=== PATIENT | female | born 1945 | race Caucasian/White ===

== ENCOUNTER 2023-10-23 13:46 | Observation (INO) ==
[2023-10-23 14:17] VITALS: BMI 25.4
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
[2023-10-23 14:51] LABS: BILIRUBIN,URINE NEGATIVE (NEGATIVE); BLOOD/HEMOGLOBIN,URINE 1+ (NEGATIVE); GLUCOSE, URINE NEGATIVE (NEGATIVE); KETONES,URINE NEGATIVE (NEGATIVE); LEUKOCYTE ESTERASE ,URINE NEGATIVE (NEGATIVE); NITRITES,URINE NEGATIVE (NEGATIVE); PROTEIN,URINE NEGATIVE (NEGATIVE); UROBILINOGEN,URINE NORMAL (NORMAL)
[2023-10-23] MEDS ORDERED: NS 500 ML IV 500 ML IV ONE ×2 (14:54→14:57)
[2023-10-23 15:04] LABS: APPEARANCE,URINE CLEAR (CLEAR); COLOR,URINE PALE YELLOW (YELLOW)
[2023-10-23 15:05] LABS: BACTERIA,URINE NEGATIVE /HPF (NEGATIVE); SQUAMOUS EPITHELIAL CELL,UR FEW /HPF (NEGATIVE)
[2023-10-23 15:37] LABS: BASOPHILS # (AUTO) 0.2 X10^3/uL (0.0-0.1); BASOPHILS % (AUTO) 1.6 % (0.2-1.0); EOSINOPHILS # (AUTO) 0.1 x10^3/uL (0.0-0.2); EOSINOPHILS % (AUTO) 1.1 % (0.9-2.9); HEMATOCRIT 41.9 % (36.0-47.0); HEMOGLOBIN 13.6 g/dL (12.0-16.0); LYMPHOCYTES # (AUTO) 3.4 X10^3/uL (1.3-2.9); LYMPHOCYTES % (AUTO) 35.4 % (21.0-51.0); MEAN CORPUSCULAR HEMOGLOBIN 26.6 pg (27.0-34.0); MEAN CORPUSCULAR HGB CONC 32.4 g/dL (33.0-35.0); MEAN CORPUSCULAR VOLUME 82.3 fL (80.0-100.0); MEAN PLATELET VOLUME 9.2 fL (7.4-11.0); MONOCYTES # (AUTO) 0.8 x10^3/uL (0.3-0.8); MONOCYTES % (AUTO) 7.9 % (0.0-13.0); NEUTROPHILS # (AUTO) 5.2 x10^3/uL (2.2-4.8); PLATELET COUNT 274 X10^3/uL (150.0-450.0); RED BLOOD COUNT 5.09 X10^6/uL (3.5-5.4); WHITE BLOOD COUNT 9.6 X10^3/uL (3.6-10.0)
[2023-10-23 15:50] LABS: ALANINE AMINOTRANSFERASE 15 Units/L (12-78); ALBUMIN 3.4 g/dL (3.4-5.0); ALKALINE PHOSPHATASE 90 Units/L (46-116); ASPARTATE AMINO TRANSFERASE 19 Units/L (15-37); BLOOD UREA NITROGEN 5 mg/dL (7-18); CARBON DIOXIDE 31.1 mmol/L (21-32); CHLORIDE 99 mmol/L (98-107); CREATININE 0.87 mg/dL (0.55-1.02); GLUCOSE 98 mg/dL (65-99); LIPASE 39 Units/L (16-77); SODIUM 137 mmol/L (136-145); eGFR NON BLACK RACES > 60 (>60)
[2023-10-23] MEDS ORDERED: K-RIDER 10 MEQ/NS 100 ML 10 MEQ/100 ML BAG IV ONE ×2 (15:53→15:56)
[2023-10-23] MEDS ORDERED: D5 NS 1,000 ML IV 1,000 ML IV ONE (15:55)
[2023-10-23 15:56] LABS: POTASSIUM 2.5 mmol/L (3.5-5.1)
[2023-10-23] MEDS ORDERED: D5 NS 1,000 ML IV 1,000 ML IV SCH (16:00)
[2023-10-23] MEDS ORDERED: ZOFRAN ODT PO PRN (18:46)
[2023-10-23] MEDS ORDERED: K-RIDER 10 MEQ/NS 100 ML 10 MEQ/100 ML BAG IV SCH ×2 (18:46→23:00)
[2023-10-23] MEDS ORDERED: PATIENT'S HOME MEDICATION (Alprazolam 1 mg tablet) PO PRN (18:46)
[2023-10-23] MEDS ORDERED: CONSULT PHARMACY - POTASSIUM & MAGNESIUM XX SCH (18:46)
[2023-10-23] MEDS ORDERED: XOPENEX 1.25 MG/3 ML NEBULE NEB ONE (19:34)
[2023-10-23] MEDS ORDERED: PULMICORT NEB TX 0.5 MG NEB ONE (19:37)
[2023-10-23] MEDS ORDERED: PROVENTIL NEB TX 0.083% 2.5MG/ 3ML ONE (19:45)
[2023-10-23] MEDS: D5 1/2 NS 1,000 ML 1,000 ML IV SCH (20:29)
[2023-10-23] MEDS: MAGNESIUM SULFATE 1 GRAM/100 mL PREMIX 1 G/100 ML BAG IV SCH ×2 (20:29→21:20)
[2023-10-23] MEDS: XOPENEX 1.25 MG/3 ML NEBULE NEB SCH (20:52)
[2023-10-23] MEDS: PULMICORT NEB TX 0.5 MG NEB SCH (20:52)
[2023-10-23] MEDS ORDERED: XOPENEX 1.25 MG/3 ML NEBULE NEB SCH (21:00)
[2023-10-23] MEDS ORDERED: [UNRECOGNIZED DRUG - OTHER] IN SCH (21:00)
[2023-10-23] MEDS ORDERED: FLUTICASONE PROPIONATE IN SCH (21:00)
[2023-10-24] MEDS ORDERED: NS + KCL 40 MEQ/L 1,000 ML IV SCH
[2023-10-24] MEDS: XOPENEX 1.25 MG/3 ML NEBULE NEB SCH ×3 (06:05→20:59)
[2023-10-24 06:26] LABS: BASOPHILS # (AUTO) 0.1 X10^3/uL (0.0-0.1); BASOPHILS % (AUTO) 1.3 % (0.2-1.0); EOSINOPHILS # (AUTO) 0.3 x10^3/uL (0.0-0.2); EOSINOPHILS % (AUTO) 3.8 % (0.9-2.9); HEMATOCRIT 38.5 % (36.0-47.0); HEMOGLOBIN 12.4 g/dL (12.0-16.0); LYMPHOCYTES # (AUTO) 3.3 X10^3/uL (1.3-2.9); LYMPHOCYTES % (AUTO) 46.1 % (21.0-51.0); MEAN CORPUSCULAR HEMOGLOBIN 26.8 pg (27.0-34.0); MEAN CORPUSCULAR HGB CONC 32.3 g/dL (33.0-35.0); MEAN PLATELET VOLUME 9.6 fL (7.4-11.0); MONOCYTES # (AUTO) 0.6 x10^3/uL (0.3-0.8); MONOCYTES % (AUTO) 8.1 % (0.0-13.0); NEUTROPHILS # (AUTO) 2.9 x10^3/uL (2.2-4.8); NEUTROPHILS % (AUTO) 40.7 % (42.0-75.0); PLATELET COUNT 216 X10^3/uL (150.0-450.0); RED BLOOD COUNT 4.64 X10^6/uL (3.5-5.4); RED CELL DISTRIBUTION WIDTH 16.5 % (11.6-16.5); WHITE BLOOD COUNT 7.2 X10^3/uL (3.6-10.0)
[2023-10-24 06:56] LABS: ALANINE AMINOTRANSFERASE 12 Units/L (12-78); ALBUMIN 2.6 g/dL (3.4-5.0); ALKALINE PHOSPHATASE 78 Units/L (46-116); ASPARTATE AMINO TRANSFERASE 18 Units/L (15-37); BLOOD UREA NITROGEN 5 mg/dL (7-18); CALCIUM 8.1 mg/dL (8.5-10.1); CARBON DIOXIDE 28.2 mmol/L (21-32); CHLORIDE 105 mmol/L (98-107); COR CA(FOR HYPOALB) 9.2 mg/dL (8.5-10.1); GLUCOSE 96 mg/dL (65-99); MAGNESIUM 2.3 mg/dL (2.0-2.9); POTASSIUM 3.1 mmol/L (3.5-5.1); SODIUM 140 mmol/L (136-145); TOTAL PROTEIN 5.6 g/dL (6.4-8.2); eGFR NON BLACK RACES > 60 (>60)
[2023-10-24] MEDS: D5 1/2 NS 1,000 ML 1,000 ML IV SCH (07:06)
[2023-10-24] MEDS ORDERED: ZOFRAN TAB 4 MG PO PRN (07:27)
[2023-10-24] MEDS: D5 1/2 NS + KCL 20 MEQ/L 1,000 ML IV SCH ×2 (09:00→22:21)
[2023-10-24] MEDS ORDERED: CONSULT PHARMACY - POTASSIUM & MAGNESIUM XX SCH (09:00)
[2023-10-24] MEDS: PULMICORT NEB TX 0.5 MG NEB SCH ×2 (09:13→20:59)
[2023-10-24] MEDS: PROTONIX TAB 40 MG PO SCH (10:36)
[2023-10-24] MEDS: ZETIA TAB 10 MG PO SCH (10:36)
[2023-10-24] MEDS: LIPITOR TAB 40 MG PO SCH (10:37)
[2023-10-24] MEDS: GOLYTELY or GAVILYTE or Equivalent PO SCH (10:37)
--- NOTE | 2023-10-24 12:42 | DR.H&P ---
H&P History & Physical for Day of: H&P Date: 10/24/23 Chief Complaint Chief Complaint: Rectal bleeding Allergies Allergies Allergy/AdvReac Type Severity Reaction Status Date / Time amoxicillin Allergy Verified 10/23/23 14:18 Iodinated Contrast Media Allergy Verified 10/23/23 14:18 [IVP DYE] meperidine [From Demerol] Allergy Verified 10/23/23 14:18 shrimp Allergy Verified 10/23/23 14:18 adhesive tape AdvReac Verified 10/23/23 14:18 [tape (adhesive)] History of Present Illness History of Present Illness: Patient is a 78-year-old female presenting with bright red blood per rectum for the past 3 days. She reports having multiple episodes of blood in stool. Has history of diverticulitis and diverticulosis in the past as well as hemorrhoids. She has had a colonoscopy 1 year ago. She is currently not on any blood thinners. Denies fevers, chills. She reports feeling weak, lightheaded. She did go to her primary care doctor and was told that she was dehydrated and needed to go to the ER for further evaluation. Labs: WBC 7.2, hemoglobin 12.4, platelets 216, sodium 140, potassium 2.5>3.1, creatinine 0.70, glucose 96. General surgery-Dr Tyson was consulted, plan for colonoscopy tomorrow. Patient will be on clear liquid diet with n.p.o. after midnight. Replete potassium per protocol. Restart home medications. Continue IV fluids D5 half-normal saline at 80 mL/h. Continue to closely monitor and follow-up labs. 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 Family History Family Medical History: Cancer, [place] and Hypertension Social History Does patient currently use any type of tobacco product: Yes Have you used tobacco products in the last 12 months: Yes Type of Tobacco Use: Cigarettes Does any household member use tobacco: No Alcohol Use: None Drug Use: None Medications Home Medications: Home Medications Medication Instructions Recorded Confirmed Type alprazolam 1 mg tablet 1 mg PO TID PRN 10/23/23 10/23/23 History amoxicillin 875 mg-potassium 1 tab PO BID 10/23/23 10/23/23 History clavulanate 125 mg tablet atorvastatin 40 mg tablet 40 mg PO QDAY 10/23/23 10/23/23 History cyclobenzaprine 10 mg tablet 10 mg PO TID PRN 10/23/23 10/23/23 History ezetimibe 10 mg tablet 10 mg PO QDAY 10/23/23 10/23/23 History fluticasone propionate 110 2 puff inhalation BID 10/23/23 10/23/23 History mcg/actuation HFA aerosol inhaler (Flovent HFA) hydrocodone 10 mg-acetaminophen 1 tab PO QID PRN 10/23/23 10/23/23 History 325 mg tablet lisinopril 20 mg tablet 20 mg PO BID 10/23/23 10/23/23 History ondansetron 4 mg disintegrating 4 mg PO Q6H PRN 10/23/23 10/23/23 History tablet pantoprazole 40 mg tablet,delayed 40 mg PO QDAY 10/23/23 10/23/23 History release Labs 10/24/23 05:32 10/24/23 05:32 Labs: Laboratory WBC 7.2 X10^3/uL (3.6-10.0) 10/24/23 05:32 RBC 4.64 X10^6/uL (3.5-5.4) 10/24/23 05:32 Hgb 12.4 g/dL (12.0-16.0) 10/24/23 05:32 Hct 38.5 % (36.0-47.0) 10/24/23 05:32 MCV 83.0 fL (80.0-100.0) 10/24/23 05:32 MCH 26.8 pg (27.0-34.0) L 10/24/23 05:32 MCHC 32.3 g/dL (33.0-35.0) L 10/24/23 05:32 RDW 16.5 % (11.6-16.5) 10/24/23 05:32 Plt Count 216 X10^3/uL (150.0-450.0) 10/24/23 05:32 MPV 9.6 fL (7.4-11.0) 10/24/23 05:32 Neut % (Auto) 40.7 % (42.0-75.0) L 10/24/23 05:32 Lymph % (Auto) 46.1 % (21.0-51.0) 10/24/23 05:32 [place] % (Auto) 8.1 % (0.0-13.0) 10/24/23 05:32 Eos % (Auto) 3.8 % (0.9-2.9) H 10/24/23 05:32 Baso % (Auto) 1.3 % (0.2-1.0) H 10/24/23 05:32 Neut # (Auto) 2.9 x10^3/uL (2.2-4.8) 10/24/23 05:32 Lymph # (Auto) 3.3 X10^3/uL (1.3-2.9) H 10/24/23 05:32 [place] # (Auto) 0.6 x10^3/uL (0.3-0.8) 10/24/23 05:32 Eos # (Auto) 0.3 x10^3/uL (0.0-0.2) H 10/24/23 05:32 Baso # (Auto) 0.1 X10^3/uL (0.0-0.1) 10/24/23 05:32 Absolute Nucleated RBC 0.2 /100WBC 10/24/23 05:32 Sodium 140 mmol/L (136-145) 10/24/23 05:32 Corrected Sodium TNP 10/24/23 05:32 Potassium 3.1 mmol/L (3.5-5.1) L 10/24/23 05:32 Chloride 105 mmol/L (98-107) 10/24/23 05:32 Carbon Dioxide 28.2 mmol/L (21-32) 10/24/23 05:32 BUN 5 mg/dL (7-18) L 10/24/23 05:32 Creatinine 0.70 mg/dL (0.55-1.02) 10/24/23 05:32 Est GFR (MDRD) Af Amer > 60 (>60) 10/24/23 05:32 Est GFR (MDRD) Non-Af > 60 (>60) 10/24/23 05:32 Glucose 96 mg/dL (65-99) 10/24/23 05:32 Calcium 8.1 mg/dL (8.5-10.1) L 10/24/23 05:32 Corrected Calcium 9.2 mg/dL (8.5-10.1) 10/24/23 05:32 Magnesium 2.3 mg/dL (2.0-2.9) 10/24/23 05:32 Total Bilirubin 0.50 mg/dL (0.2-1.0) 10/24/23 05:32 AST 18 Units/L (15-37) 10/24/23 05:32 ALT 12 Units/L (12-78) 10/24/23 05:32 Alkaline Phosphatase 78 Units/L (46-116) 10/24/23 05:32 Total Protein 5.6 g/dL (6.4-8.2) L 10/24/23 05:32 Albumin 2.6 g/dL (3.4-5.0) L 10/24/23 05:32 Globulin 3.0 g/dL (2.5-4.5) 10/24/23 05:32 Albumin/Globulin Ratio 0.9 Ratio (1.1-2.1) L 10/24/23 05:32 Lipase 39 Units/L (16-77) 10/23/23 15:13 Specimen Type Clean catch urine 10/23/23 14:41 Urine Color Pale yellow (YELLOW) 10/23/23 14:41 Urine Appearance Clear (CLEAR) 10/23/23 14:41 Urine pH 6.0 (5.0 - 8.0) 10/23/23 14:41 Ur Specific [place] 1.010 (1.000-1.030) 10/23/23 14:41 Urine Protein Negative (NEGATIVE) 10/23/23 14:41 Urine Glucose (UA) Negative (NEGATIVE) 10/23/23 14:41 Urine Ketones Negative (NEGATIVE) 10/23/23 14:41 Urine Blood 1+ (NEGATIVE) 10/23/23 14:41 Urine Nitrite Negative (NEGATIVE) 10/23/23 14:41 Urine Bilirubin Negative (NEGATIVE) 10/23/23 14:41 Urine Urobilinogen Normal (NORMAL) 10/23/23 14:41 Ur Leukocyte Esterase Negative (NEGATIVE) 10/23/23 14:41 Urine RBC 3-5 /HPF (0-3) A 10/23/23 14:41 Urine WBC None seen /HPF (0-5) 10/23/23 14:41 Ur Squamous Epith Cells Few /HPF (NEGATIVE) 10/23/23 14:41 Urine Bacteria Negative /HPF (NEGATIVE) 10/23/23 14:41 Ur Culture Indicated? No/not indicated 10/23/23 14:41 Blood Type AB POSITIVE 10/23/23 15:13 Blood Type AB POSITIVE 10/23/23 15:13 Antibody Screen Negative 10/23/23 15:13 Review of Systems Constitutional: No Symptoms Reported Eyes: No Symptoms Reported ENT: No Symptoms Reported Respiratory: No Symptoms Reported Cardiovascular: No Symptoms Reported Gastrointestinal: Other (BRB per rectum) Genitourinary: No Symptoms Reported Musculoskeletal: No Symptoms Reported Skin: No Symptoms Reported Neurological: No Symptoms Reported Physical Exam Vital Signs: Vital Signs Temperature 97.7 F Pulse Rate [Left Radial] 76 Pulse Rate 54 Respiratory Rate 20 Blood Pressure [Right Arm] 119/61 O2 Sat by Pulse Oximetry 98 O2 Sat by Pulse Oximetry 95 Oriented: Normal Eyes: Normal Ear: Normal Nose: Normal Throat: Normal Respiratory: Clear Throughout Cardiovascular: Normal : Normal Auscultation: Bowel Sounds: Normal Palpation: Normal Tenderness: Normal Skin: Normal Musculoskeletal: Normal Psychiatric: Normal Mood Description: Calm and Appropriate Affect: Normal Speech Pattern: Clear and Appropriate Assessment/Plan (1) Rectal bleeding: Narrative Support Text: General surgery-Dr Tyson consulted. Plan for colonoscopy tomorrow. CLD, IVF Status: Acute (2) Acute hypokalemia: Status: Acute Review H&P Reviewed: Yes Patient was examined?: Yes
[2023-10-24] MEDS: XANAX PO PRN (20:44)
[2023-10-25] MEDS: D5 1/2 NS + KCL 20 MEQ/L 1,000 ML IV SCH ×3 (01:14→17:26)
[2023-10-25] MEDS: XOPENEX 1.25 MG/3 ML NEBULE NEB SCH ×3 (06:06→20:50)
[2023-10-25 06:47] LABS: BASOPHILS # (AUTO) 0.1 X10^3/uL (0.0-0.1); EOSINOPHILS # (AUTO) 0.2 x10^3/uL (0.0-0.2); EOSINOPHILS % (AUTO) 2.9 % (0.9-2.9); HEMATOCRIT 39.4 % (36.0-47.0); HEMOGLOBIN 12.8 g/dL (12.0-16.0); LYMPHOCYTES # (AUTO) 2.4 X10^3/uL (1.3-2.9); MEAN CORPUSCULAR HEMOGLOBIN 26.9 pg (27.0-34.0); MEAN CORPUSCULAR HGB CONC 32.5 g/dL (33.0-35.0); MEAN CORPUSCULAR VOLUME 82.7 fL (80.0-100.0); MEAN PLATELET VOLUME 9.7 fL (7.4-11.0); MONOCYTES # (AUTO) 0.5 x10^3/uL (0.3-0.8); MONOCYTES % (AUTO) 6.8 % (0.0-13.0); NEUTROPHILS # (AUTO) 4.1 x10^3/uL (2.2-4.8); NEUTROPHILS % (AUTO) 56.3 % (42.0-75.0); PLATELET COUNT 190 X10^3/uL (150.0-450.0); RED BLOOD COUNT 4.77 X10^6/uL (3.5-5.4); RED CELL DISTRIBUTION WIDTH 16.7 % (11.6-16.5); WHITE BLOOD COUNT 7.3 X10^3/uL (3.6-10.0)
[2023-10-25 07:07] LABS: ALANINE AMINOTRANSFERASE 16 Units/L (12-78); ALBUMIN 2.7 g/dL (3.4-5.0); ALKALINE PHOSPHATASE 78 Units/L (46-116); ASPARTATE AMINO TRANSFERASE 18 Units/L (15-37); BLOOD UREA NITROGEN 3 mg/dL (7-18); CALCIUM 8.5 mg/dL (8.5-10.1); CARBON DIOXIDE 28.8 mmol/L (21-32); CHLORIDE 107 mmol/L (98-107); COR CA(FOR HYPOALB) 9.5 mg/dL (8.5-10.1); CREATININE 0.63 mg/dL (0.55-1.02); GLUCOSE 97 mg/dL (65-99); POTASSIUM 3.6 mmol/L (3.5-5.1); SODIUM 142 mmol/L (136-145); TOTAL PROTEIN 5.8 g/dL (6.4-8.2); eGFR NON BLACK RACES > 60 (>60)
[2023-10-25] MEDS ORDERED: CONSULT PHARMACY - POTASSIUM & MAGNESIUM XX SCH (09:00)
[2023-10-25] MEDS: PULMICORT NEB TX 0.5 MG NEB SCH ×2 (09:10→20:50)
[2023-10-25] MEDS ORDERED: NS 500 ML IV 500 ML IV ONE (11:20)
[2023-10-25] MEDS ORDERED: DIPRIVAN VIAL 20 ML ONE (11:39)
[2023-10-25] MEDS ORDERED: XYLOCAINE 2 % (PLAIN) ONE (11:40)
[2023-10-25] MEDS: GOLYTELY or GAVILYTE or Equivalent PO SCH (14:07)
[2023-10-25] MEDS: ZETIA TAB 10 MG PO SCH (14:23)
[2023-10-25] MEDS: PROTONIX TAB 40 MG PO SCH (14:24)
[2023-10-25] MEDS: LIPITOR TAB 40 MG PO SCH (14:24)
[2023-10-25] MEDS: NORCO 10/325 TAB PO PRN (16:51)
[2023-10-25] MEDS: XANAX PO PRN (18:47)
[2023-10-26] MEDS: D5 1/2 NS + KCL 20 MEQ/L 1,000 ML IV SCH (01:06)
[2023-10-26 06:17] LABS: BASOPHILS % (AUTO) 0.3 % (0.2-1.0); EOSINOPHILS # (AUTO) 0.2 x10^3/uL (0.0-0.2); HEMATOCRIT 35.4 % (36.0-47.0); HEMOGLOBIN 11.5 g/dL (12.0-16.0); LYMPHOCYTES # (AUTO) 1.7 X10^3/uL (1.3-2.9); LYMPHOCYTES % (AUTO) 26.6 % (21.0-51.0); MEAN CORPUSCULAR HEMOGLOBIN 26.9 pg (27.0-34.0); MEAN CORPUSCULAR HGB CONC 32.6 g/dL (33.0-35.0); MEAN CORPUSCULAR VOLUME 82.6 fL (80.0-100.0); MEAN PLATELET VOLUME 9.6 fL (7.4-11.0); MONOCYTES # (AUTO) 0.4 x10^3/uL (0.3-0.8); MONOCYTES % (AUTO) 5.8 % (0.0-13.0); NEUTROPHILS % (AUTO) 63.3 % (42.0-75.0); PLATELET COUNT 188 X10^3/uL (150.0-450.0); RED BLOOD COUNT 4.29 X10^6/uL (3.5-5.4); RED CELL DISTRIBUTION WIDTH 16.6 % (11.6-16.5); WHITE BLOOD COUNT 6.3 X10^3/uL (3.6-10.0)
[2023-10-26 06:28] LABS: ALANINE AMINOTRANSFERASE 15 Units/L (12-78); ALBUMIN 2.5 g/dL (3.4-5.0); ALKALINE PHOSPHATASE 89 Units/L (46-116); ASPARTATE AMINO TRANSFERASE 16 Units/L (15-37); BLOOD UREA NITROGEN 4 mg/dL (7-18); CALCIUM 8.1 mg/dL (8.5-10.1); CARBON DIOXIDE 29.1 mmol/L (21-32); CHLORIDE 104 mmol/L (98-107); COR CA(FOR HYPOALB) 9.3 mg/dL (8.5-10.1); CREATININE 0.66 mg/dL (0.55-1.02); GLUCOSE 105 mg/dL (65-99); POTASSIUM 3.5 mmol/L (3.5-5.1); SODIUM 140 mmol/L (136-145); TOTAL PROTEIN 5.4 g/dL (6.4-8.2); eGFR NON BLACK RACES > 60 (>60)
[2023-10-26] MEDS ORDERED: CONSULT PHARMACY - POTASSIUM & MAGNESIUM XX SCH (08:00)
[2023-10-26] MEDS: MAG-OX TAB PO SCH ×2 (08:26→10:18)
[2023-10-26] MEDS: PROTONIX TAB 40 MG PO SCH (08:26)
[2023-10-26] MEDS: LIPITOR TAB 40 MG PO SCH (08:26)
[2023-10-26] MEDS: ZETIA TAB 10 MG PO SCH (08:27)
--- NOTE | 2023-10-26 08:27 | PCM.PROG ---
Progress Note Progress Note for Day of Date of Exam: 10/25/23 Subjective Subjective: Patient is a 78-year-old female admitted for rectal bleeding. This morning she is resting comfortably in bed. No acute events overnight. Labs: WBC 7.3, hemoglobin 12.8, platelets 190, sodium 142, potassium 3.6, creatinine 0.63, glucose 97. General surgery-Dr Tyson was consulted, plan for colonoscopy today. Patient is currently n.p.o. after midnight. Home medications have been resumed but will be held this morning. Continue IV fluids D5 half-normal saline at 80 mL/h. Continue to closely monitor and follow-up labs. Past Medical Family Social History Allergies: Allergies amoxicillin Allergy (Verified 10/23/23 14:18) Iodinated Contrast Media [IVP DYE] Allergy (Verified 10/23/23 14:18) meperidine [From Demerol] Allergy (Verified 10/23/23 14:18) shrimp Allergy (Verified 10/23/23 14:18) adhesive tape [tape (adhesive)] Adverse Reaction (Verified 10/23/23 14:18) Review of Systems ROS changes noted: see HPI Vital Signs and I&O's Vital Signs: Vital Signs Temperature 98.3 F Pulse Rate [Left Radial] 91 Respiratory Rate 20 Blood Pressure [Right Arm] 97/61 O2 Sat by Pulse Oximetry 94 Intake and Output: Intake & Output 10/23/23 10/24/23 10/25/23 10/26/23 23:59 23:59 23:59 23:59 Intake Total 977 / 977 3245 / 3245 2536 / 2536 1393 / 1393 Balance 977 / 977 3245 / 3245 2536 / 2536 1393 / 1393 Physical Exam Oriented: Normal Eyes: Normal Ear: Normal Nose: Normal Throat: Normal Respiratory: Normal Cardiovascular: Normal : Normal Auscultation: Bowel Sounds: Normal Tenderness: Normal Skin: Normal Musculoskeletal: Normal Psychiatric: Normal Mood Description: Calm and Appropriate Affect: Normal Speech Pattern: Clear and Appropriate Laboratory and Diagnostics 10/26/23 04:58 10/26/23 04:58 Labs: Laboratory WBC 6.3 X10^3/uL (3.6-10.0) 10/26/23 04:58 RBC 4.29 X10^6/uL (3.5-5.4) 10/26/23 04:58 Hgb 11.5 g/dL (12.0-16.0) L 10/26/23 04:58 Hct 35.4 % (36.0-47.0) L 10/26/23 04:58 MCV 82.6 fL (80.0-100.0) 10/26/23 04:58 MCH 26.9 pg (27.0-34.0) L 10/26/23 04:58 MCHC 32.6 g/dL (33.0-35.0) L 10/26/23 04:58 RDW 16.6 % (11.6-16.5) H 10/26/23 04:58 Plt Count 188 X10^3/uL (150.0-450.0) 10/26/23 04:58 MPV 9.6 fL (7.4-11.0) 10/26/23 04:58 Neut % (Auto) 63.3 % (42.0-75.0) 10/26/23 04:58 Lymph % (Auto) 26.6 % (21.0-51.0) 10/26/23 04:58 [place] % (Auto) 5.8 % (0.0-13.0) 10/26/23 04:58 Eos % (Auto) 4.0 % (0.9-2.9) H 10/26/23 04:58 Baso % (Auto) 0.3 % (0.2-1.0) 10/26/23 04:58 Neut # (Auto) 4.0 x10^3/uL (2.2-4.8) 10/26/23 04:58 Lymph # (Auto) 1.7 X10^3/uL (1.3-2.9) 10/26/23 04:58 [place] # (Auto) 0.4 x10^3/uL (0.3-0.8) 10/26/23 04:58 Eos # (Auto) 0.2 x10^3/uL (0.0-0.2) 10/26/23 04:58 Baso # (Auto) 0.0 X10^3/uL (0.0-0.1) 10/26/23 04:58 Absolute Nucleated RBC 0.2 /100WBC 10/26/23 04:58 Sodium 140 mmol/L (136-145) 10/26/23 04:58 Corrected Sodium TNP 10/26/23 04:58 Potassium 3.5 mmol/L (3.5-5.1) 10/26/23 04:58 Chloride 104 mmol/L (98-107) 10/26/23 04:58 Carbon Dioxide 29.1 mmol/L (21-32) 10/26/23 04:58 BUN 4 mg/dL (7-18) L 10/26/23 04:58 Creatinine 0.66 mg/dL (0.55-1.02) 10/26/23 04:58 Est GFR (MDRD) Af Amer > 60 (>60) 10/26/23 04:58 Est GFR (MDRD) Non-Af > 60 (>60) 10/26/23 04:58 Glucose 105 mg/dL (65-99) H 10/26/23 04:58 Calcium 8.1 mg/dL (8.5-10.1) L 10/26/23 04:58 Corrected Calcium 9.3 mg/dL (8.5-10.1) 10/26/23 04:58 Magnesium 1.8 mg/dL (2.0-2.9) L 10/26/23 04:58 Total Bilirubin 0.50 mg/dL (0.2-1.0) 10/26/23 04:58 AST 16 Units/L (15-37) 10/26/23 04:58 ALT 15 Units/L (12-78) 10/26/23 04:58 Alkaline Phosphatase 89 Units/L (46-116) 10/26/23 04:58 Total Protein 5.4 g/dL (6.4-8.2) L 10/26/23 04:58 Albumin 2.5 g/dL (3.4-5.0) L 10/26/23 04:58 Globulin 2.9 g/dL (2.5-4.5) 10/26/23 04:58 Albumin/Globulin Ratio 0.9 Ratio (1.1-2.1) L 10/26/23 04:58 Lipase 39 Units/L (16-77) 10/23/23 15:13 Specimen Type Clean catch urine 10/23/23 14:41 Urine Color Pale yellow (YELLOW) 10/23/23 14:41 Urine Appearance Clear (CLEAR) 10/23/23 14:41 Urine pH 6.0 (5.0 - 8.0) 10/23/23 14:41 Ur Specific [place] 1.010 (1.000-1.030) 10/23/23 14:41 Urine Protein Negative (NEGATIVE) 10/23/23 14:41 Urine Glucose (UA) Negative (NEGATIVE) 10/23/23 14:41 Urine Ketones Negative (NEGATIVE) 10/23/23 14:41 Urine Blood 1+ (NEGATIVE) 10/23/23 14:41 Urine Nitrite Negative (NEGATIVE) 10/23/23 14:41 Urine Bilirubin Negative (NEGATIVE) 10/23/23 14:41 Urine Urobilinogen Normal (NORMAL) 10/23/23 14:41 Ur Leukocyte Esterase Negative (NEGATIVE) 10/23/23 14:41 Urine RBC 3-5 /HPF (0-3) A 10/23/23 14:41 Urine WBC None seen /HPF (0-5) 10/23/23 14:41 Ur Squamous Epith Cells Few /HPF (NEGATIVE) 10/23/23 14:41 Urine Bacteria Negative /HPF (NEGATIVE) 10/23/23 14:41 Ur Culture Indicated? No/not indicated 10/23/23 14:41 Blood Type AB POSITIVE 10/23/23 15:13 Blood Type AB POSITIVE 10/23/23 15:13 Antibody Screen Negative 10/23/23 15:13 Plan (1) Rectal bleeding: Status: Acute (2) Acute hypokalemia: Status: Acute
[2023-10-26] MEDS: PULMICORT NEB TX 0.5 MG NEB SCH (08:28)
[2023-10-26] MEDS: NORCO 10/325 TAB PO PRN (08:36)
[2023-10-26 08:37] VITALS: RESP 18
[2023-10-26] MEDS ORDERED: K-DUR TAB 20 MEQ PO SCH (09:00)
[2023-10-26 09:12] VITALS: O2SAT 96
[2023-10-26] MEDS: GOLYTELY or GAVILYTE or Equivalent PO SCH (10:19)
[2023-10-26 11:53] VITALS: BP 140/70; PULSE 101; TEMP 99.6
--- NOTE | 2023-11-06 15:34 | W.DIS.FURT ---
Summary of Discharge Discharge Summary of Date Date of Exam: 10/26/23 Admission Date Date of Admission: 10/23/23 Admission Diagnosis Patient Problems (Updated 10/23/23 @ 17:31 by Santos Baltazar) Acute hypokalemia (Acute) E87.6 Rectal bleeding (Acute) K62.5 Hospital Course: Patient is a 78-year-old female admitted for rectal bleeding. General surgery-Dr Tyson was consulted, colonoscopy revealed multiple internal hemorrhoids that was likely cause of bleed, no longer actively bleeding. Hemoglobin stabilized. Pt discharged in stable condition, instructed to follow up with general surgery and pcp in 1 week. Labs: Laboratory Last Values WBC 6.3 X10^3/uL (3.6-10.0) 10/26/23 04:58 RBC 4.29 X10^6/uL (3.5-5.4) 10/26/23 04:58 Hgb 11.5 g/dL (12.0-16.0) L 10/26/23 04:58 Hct 35.4 % (36.0-47.0) L 10/26/23 04:58 MCV 82.6 fL (80.0-100.0) 10/26/23 04:58 MCH 26.9 pg (27.0-34.0) L 10/26/23 04:58 MCHC 32.6 g/dL (33.0-35.0) L 10/26/23 04:58 RDW 16.6 % (11.6-16.5) H 10/26/23 04:58 Plt Count 188 X10^3/uL (150.0-450.0) 10/26/23 04:58 MPV 9.6 fL (7.4-11.0) 10/26/23 04:58 Neut % (Auto) 63.3 % (42.0-75.0) 10/26/23 04:58 Lymph % (Auto) 26.6 % (21.0-51.0) 10/26/23 04:58 [place] % (Auto) 5.8 % (0.0-13.0) 10/26/23 04:58 Eos % (Auto) 4.0 % (0.9-2.9) H 10/26/23 04:58 Baso % (Auto) 0.3 % (0.2-1.0) 10/26/23 04:58 Neut # (Auto) 4.0 x10^3/uL (2.2-4.8) 10/26/23 04:58 Lymph # (Auto) 1.7 X10^3/uL (1.3-2.9) 10/26/23 04:58 [place] # (Auto) 0.4 x10^3/uL (0.3-0.8) 10/26/23 04:58 Eos # (Auto) 0.2 x10^3/uL (0.0-0.2) 10/26/23 04:58 Baso # (Auto) 0.0 X10^3/uL (0.0-0.1) 10/26/23 04:58 Absolute Nucleated RBC 0.2 /100WBC 10/26/23 04:58 Sodium 140 mmol/L (136-145) 10/26/23 04:58 Corrected Sodium TNP 10/26/23 04:58 Potassium 3.5 mmol/L (3.5-5.1) 10/26/23 04:58 Chloride 104 mmol/L (98-107) 10/26/23 04:58 Carbon Dioxide 29.1 mmol/L (21-32) 10/26/23 04:58 BUN 4 mg/dL (7-18) L 10/26/23 04:58 Creatinine 0.66 mg/dL (0.55-1.02) 10/26/23 04:58 Est GFR (MDRD) Af Amer > 60 (>60) 10/26/23 04:58 Est GFR (MDRD) Non-Af > 60 (>60) 10/26/23 04:58 Glucose 105 mg/dL (65-99) H 10/26/23 04:58 Calcium 8.1 mg/dL (8.5-10.1) L 10/26/23 04:58 Corrected Calcium 9.3 mg/dL (8.5-10.1) 10/26/23 04:58 Magnesium 1.8 mg/dL (2.0-2.9) L 10/26/23 04:58 Total Bilirubin 0.50 mg/dL (0.2-1.0) 10/26/23 04:58 AST 16 Units/L (15-37) 10/26/23 04:58 ALT 15 Units/L (12-78) 10/26/23 04:58 Alkaline Phosphatase 89 Units/L (46-116) 10/26/23 04:58 Total Protein 5.4 g/dL (6.4-8.2) L 10/26/23 04:58 Albumin 2.5 g/dL (3.4-5.0) L 10/26/23 04:58 Globulin 2.9 g/dL (2.5-4.5) 10/26/23 04:58 Albumin/Globulin Ratio 0.9 Ratio (1.1-2.1) L 10/26/23 04:58 Lipase 39 Units/L (16-77) 10/23/23 15:13 Specimen Type Clean catch urine 10/23/23 14:41 Urine Color Pale yellow (YELLOW) 10/23/23 14:41 Urine Appearance Clear (CLEAR) 10/23/23 14:41 Urine pH 6.0 (5.0 - 8.0) 10/23/23 14:41 Ur Specific Howe 1.010 (1.000-1.030) 10/23/23 14:41 Urine Protein Negative (NEGATIVE) 10/23/23 14:41 Urine Glucose (UA) Negative (NEGATIVE) 10/23/23 14:41 Urine Ketones Negative (NEGATIVE) 10/23/23 14:41 Urine Blood 1+ (NEGATIVE) 10/23/23 14:41 Urine Nitrite Negative (NEGATIVE) 10/23/23 14:41 Urine Bilirubin Negative (NEGATIVE) 10/23/23 14:41 Urine Urobilinogen Normal (NORMAL) 10/23/23 14:41 Ur Leukocyte Esterase Negative (NEGATIVE) 10/23/23 14:41 Urine RBC 3-5 /HPF (0-3) A 10/23/23 14:41 Urine WBC None seen /HPF (0-5) 10/23/23 14:41 Ur Squamous Epith Cells Few /HPF (NEGATIVE) 10/23/23 14:41 Urine Bacteria Negative /HPF (NEGATIVE) 10/23/23 14:41 Ur Culture Indicated? No/not indicated 10/23/23 14:41 Blood Type AB POSITIVE 10/23/23 15:13 Blood Type AB POSITIVE 10/23/23 15:13 Antibody Screen Negative 10/23/23 15:13 Reason For Visit: AVUTE HYPOKALEMIA, RECTAL BLEEDING Discharge Date Discharge Date: 10/26/23 Discharge Diagnosis All Active Problems (Updated 10/23/23 @ 17:31 by Santos Baltazar) Acute hypokalemia (Acute) Rectal bleeding (Acute) Plan of Treatment: Continue with present treatment and follow up plan. Pt is to keep follow up appointment as instructed and take medications as ordered. Discharge Medications Discharge Medications: amoxicillin Allergy (Verified 10/23/23 14:18) Iodinated Contrast Media [IVP DYE] Allergy (Verified 10/23/23 14:18) meperidine [From Demerol] Allergy (Verified 10/23/23 14:18) shrimp Allergy (Verified 10/23/23 14:18) adhesive tape [tape (adhesive)] Adverse Reaction (Verified 10/23/23 14:18) CONTINUE taking the following medications alprazolam 1 mg tablet 1 mg PO TID PRN 10/23/23 [History] amoxicillin 875 mg-potassium clavulanate 125 mg tablet 1 tab PO BID 10/23/23 [History] atorvastatin 40 mg tablet 40 mg PO QDAY 10/23/23 [History] cyclobenzaprine 10 mg tablet 10 mg PO TID PRN 10/23/23 [History] ezetimibe 10 mg tablet 10 mg PO QDAY 10/23/23 [History] fluticasone propionate 110 mcg/actuation HFA aerosol inhaler (Flovent HFA) 2 puff inhalation BID 10/23/23 [History] hydrocodone 10 mg-acetaminophen 325 mg tablet 1 tab PO QID PRN 10/23/23 [History] lisinopril 20 mg tablet 20 mg PO BID 10/23/23 [History] ondansetron 4 mg disintegrating tablet 4 mg PO Q6H PRN 10/23/23 [History] pantoprazole 40 mg tablet,delayed release 40 mg PO QDAY 10/23/23 [History] Discharge Plan Discharge Plan Hospital Course: Patient is a 78-year-old female admitted for rectal bleeding. General surgery-Dr Tyson was consulted, colonoscopy revealed multiple internal hemorrhoids that was likely cause of bleed, no longer actively bleeding. Hemoglobin stabilized. Pt discharged in stable condition, instructed to follow up with general surgery and pcp in 1 week. Patient Disposition: 01 HOME, SELF-CARE Condition: Stable Health Concerns: Post Hospitalization: new medications and changes needed to prevent readmission or further decline. Pt educated and given instructions on all concerns. Care Plan Goals: Problem: Fluid Volume Deficit Goal: Maintain/Improved Adequate hydration. Instructions: Follow provided instructions. Follow up with primary physician as directed. Contact primary care physician or report to the closest Emergency Room if condition worsens. Plan of Treatment: Continue with present treatment and follow up plan. Pt is to keep follow up appointment as instructed and take medications as ordered. Prescriptions: Continued cyclobenzaprine 10 mg tablet 10 mg PO TID PRN atorvastatin 40 mg tablet 40 mg PO QDAY alprazolam 1 mg tablet 1 mg PO TID PRN lisinopril 20 mg tablet 20 mg PO BID hydrocodone-acetaminophen 10-325 mg tablet 1 tab PO QID PRN pantoprazole 40 mg tablet,delayed release (DR/EC) 40 mg PO QDAY ondansetron 4 mg tablet,disintegrating 4 mg PO Q6H PRN fluticasone propionate [Flovent HFA] 110 mcg/actuation HFA aerosol inhaler 2 puff inhalation BID amoxicillin-pot clavulanate 875-125 mg tablet 1 tab PO BID Rx Instructions: x 10 days - started on 10/15/23 ezetimibe 10 mg tablet 10 mg PO QDAY Orders to Discharge Patient Discharge Orders: Discharge (Routine); Ordered 10/26/23 Ordered By: RAMU ELLIOTT Follow ups/Referrals Follow ups/Referrals: RAMU ELLIOTT [STAFF PHYSICIAN] - 11/07/23 11:20 am SCOOTER FANG [Primary Care Provider] - (Follow up as needed) Instructions Instructions: Colonoscopy, Adult, Care After, [id number], Hypokalemia, Gastrointestinal Bleeding, [id number], Monitored Anesthesia Care, Care After Stand Alone Forms: Post Hospital Follow Up Care
== END 2023-10-26 10:30 | disposition home or self-care (01) ==
LOC: MED/SURG 13:46 → ER 13:46 → MED/SURG 18:16
PROVIDERS: ADMIT Family Medicine; ATTEND Family Medicine